=== PATIENT | female | born 1935 | race Caucasian/White ===

== ENCOUNTER → 2019-03-16 | Outpatient (CLI) | payer MEDICARE, OTHER ==
[~2019-03-16] MED LIST: ASPIRIN E.C. 8181 MG PO; ATIVAN 1MG T1 MG/TAB PO; ATROVENT I0.2 MG/1 M IH; COZAAR 50MG50 MG/TAB PO; CYMBALTA; CYMBALTA 30MG30 MG PO; ELAVIL25 MG PO; FLONASE NASAL S16 GM NS; FLOVENT DI100 MCG/Ac IH; KLONOPIN0.5 MG PO; PRAVACHOL 20MG20 MG PO; PREDNISONE10 MG PO; PREDNISONE20 MG PO; PRIL40 PO; PULMICORT180 MCG/A2 IH; RELION VEN0.09 MG/Ac IH; RT ADVAIR HFA 1112 G IH; SINGULAIR10 MG PO; TUSSINEX PO; TYLENOL 325MG325 MG PO; VITAMIN B121000 MC2 SL; VITAMIN B1225 MCG PO; VITAMIN D1000 IU PO; VITAMIN D31000 I1 PO; ZOCOR 20MG20 MG PO; ZOCOR 40MG40 MG PO; ZOFRAN 4MG T4 MG/TAB PO; ZYRTEC 10MG10 MG PO; ZYRTEC10 MG PO
== END ==
LOC: COL.VAS 10:00
DX: I65.23 Occlusion and stenosis of bilateral carotid arteries (principal); G45.9 Transient cerebral ischemic attack, unspecified; Z98.890 Other specified postprocedural states